=== PATIENT | male | born 1965 | race Caucasian/White ===

== ENCOUNTER → 2017-01-01 | Outpatient (CLI) | payer MEDICARE, MEDICAID ==
[~2017-01-01] MED LIST: ACETAMINOPHEN325 MG PO; ATIVAN 1 MG1 MG PO; BANZEL400 MG PO; CARNITOR S100 MG/1 M PO; CONSTULOSE10 GM/15 M PO; DEPAKOTE DELAY500 MG PO; DEPAKOTE250 MG PO; DULCOLAX10 MG R; K-TAB 10MEQ10 MEQ PO; KEPPRA1000 MG PO; KLONOPIN2 MG PO; LEVOTHROID (SY50 MCG PO; LINZESS145 MCG PO; LIPITOR80 MG PO; MILK OF MA400 MG/5 M PO; PRILOSEC20 MG PO; ROBITUSSIN DM120 ML PO; SENNA8.6 MG PO; TRIAMTERENE-HC1 EAC1 PO; VITAMIN D-32000 UNI1 PO; ZONISAMIDE100 MG PO
== END | disposition disaster alternative care site (69) ==
LOC: LBETH 12-31 05:36
DX: Z12.5 Encounter for screening for malignant neoplasm of prostate (principal); R97.20 Elevated prostate specific antigen [PSA]

== ENCOUNTER 2017-05-21 20:13 | Emergency (ER) | payer MEDICARE, MEDICAID ==
--- NOTE | ~2017-05-21 | ER ---
PATIENT'S NAME: HUYEN GERARDO [facility] AGE: 51 Y [address] ROOM: [place] [address] LOCATION: [facility] ADMIT DATE: 05/21/2017 ER/Outpatient Report DISCHARGE DATE: 05/21/2017 FAMILY PHYSICIAN: Physician, Unknown ATTENDING PHYSICIAN: Saul Stovall Admission date and time documented in the medical record. I saw the patient at 2025 hours. CHIEF COMPLAINT: Dislodged vagus nerve stimulator left anterior upper chest. HISTORY OF PRESENT ILLNESS: This patient is a 51-year-old male, who is a resident at [facility] in [place], [place]. He apparently had a new vagus nerve stimulator or a new battery replaced in the old stimulator month or so ago. This was performed by a surgeon in [place], [place]. Staff noticed this evening that the stimulator site was disrupted and the stimulator is about 2 inches lower than its normal position and around the stimulator it is swollen and ecchymotic. It is not noted that the patient had any trauma fall. Did not know whether he disrupted it with his hands. In any event, they presented with him to the emergency room for evaluation. They did call Dr. Gregg, neurologist who follows this patient concerning the disruption of the stimulator and he wanted the patient to be seen in the emergency department. No other complaints. No recent colds, coughs, flus, fever, chills, or sweats. The patient does have a seizure disorder and has 10+ seizures a day. Without the vagus nerve stimulator on, he has more seizures. It seems like the vagal nerve stimulator does reduce the number of seizures he has through the day. The patient does wear helmet. HOME MEDICATIONS: See attached medication list. ALLERGIES: PHENOBARBITAL, DILANTIN AND DARVOCET. SOCIAL HISTORY: Nonsmoker, nondrinker. He is a resident at [facility]. SIGNIFICANT PAST MEDICAL HISTORY: Seizure disorder. PAST SURGICAL HISTORY: Vagal nerve stimulator implant. PATIENT'S NAME: HUYEN GERARDO [facility] AGE: 51 Y [address] ROOM: [place] [address] LOCATION: [facility] ADMIT DATE: 05/21/2017 ER/Outpatient Report DISCHARGE DATE: 05/21/2017 FAMILY PHYSICIAN: Physician, Unknown ATTENDING PHYSICIAN: Saul Stovall REVIEW OF SYSTEMS: All systems reviewed by me are negative with the exception of those discussed in the history of present illness. PHYSICAL EXAMINATION: VITAL SIGNS: Temperature 96.7 tympanic, pulse 78, respirations 16, blood pressure 101/65, O2 saturation on room air is 96%. LUNGS: Clear. Nerve stimulator is displaced inferiorly. It is not in the normal pocket, but it is below the pocket. It is swollen and ecchymotic. HEART: Regular. Pulses are palpable. ABDOMEN: Soft, nontender. Good bowel tones. IMAGING STUDIES: Chest x-ray shows a nerve stimulator with the wire. It is below the skin surface and it is displaced inferiorly. No acute changes with the lungs on chest x-ray. We will review chest x-ray with the radiologist. IMPRESSION: Dislodged left upper anterior chest vagus nerve stimulator that was placed in a pocket in the chest wall. It looks like the inferior aspect of the pocket has ruptured and the stimulator casing has went through the bottom of the pocket and it is inferior to the manufactured pocket underneath the skin of the left anterior chest wall. Wires still there, unknown whether that it is displaced. PLAN: I did talk with Dr. Gregg, neurologist concerning this. He felt that there was not an emergent event that requires him to go the [facility] to see the surgeon ramon. We discharged the patient home from the emergency department back to [facility] in [place]. We turned the stimulator off. Called the surgeon who worked with the patient and placed the stimulator on Wednesday. Hopefully, the surgeon will be able to see him the first of the week. Continue all other present medication and treatments. Follow up with the personal physician as needed. MD ALBIN ROGERS/modl /[id number] d: 05/22/178 t: 05/22/17 0419, OUTPATIENT REPORT
== END 2017-05-21 21:10 | disposition disaster alternative care site (69) ==
LOC: GMED 20:13
DX: T85.191A Other mechanical complication of implanted electronic neurostimulator of peripheral nerve electrode (lead), initial encounter (principal); G40.909 Epilepsy, unspecified, not intractable, without status epilepticus; Z88.8 Allergy status to other drugs, medicaments and biological substances; Z79.899 Other long term (current) drug therapy